=== PATIENT | male | born 1955 | race Two or more races ===

== ENCOUNTER 2023-04-03 07:16 | Inpatient (IN) | payer OTHER ==
[2023-03-28 10:33] LABS: PH,URINE 5.5 (5.0-8.0); URINE APPEARANCE Clear; URINE BILIRRUBIN Negative (NEGATIVE); URINE BLOOD Small; URINE COLOR Dark Yellow; URINE GLUCOSE Negative (NEGATIVE); URINE LEUKOCYTE Negative; URINE NITRATE Negative; URINE PROTEIN Negative (NEGATIVE)
[2023-03-28 10:37] LABS: URINE BACTERIA 8.8 uL (0.0-1933); URINE RBC 24.7 uL (0.0-20.8); URINE WBC 7.7 uL (0.0-23.2)
[2023-03-28 10:38] LABS: HEMATOCRIT 45.4 % (39.0-48.0); HEMOGLOBIN 15.7 g/dL (13-16.00); MEAN CELL VOLUME 95.1 fL (80.0-100.00); MEAN CORPUSCULAR HEMOGLOBIN 32.8 pg (27.00-32.0); MEAN CORPUSCULAR HGB CONC 34.5 g/dl (32.0-36.0); PLATELET COUNT 180 K/uL (150-450); RED BLOOD COUNT 4.78 M/uL (4.00-6.00); RED CELL DISTRIBUTION WIDTH 13.8 % (11.5-14.5)
[2023-03-28 11:04] LABS: INR 1.04; PARTIAL THROMBOPLASTIN TIME 28.6 SECONDS (22.0-34.0); PROTHROMBIN TIME 10.9 SECONDS (9.0-11.5)
[2023-03-28 11:10] LABS: ALBUMIN 3.9 gm/dL (3.4-5.0); BILIRUBIN TOTAL 0.7 mg/dL (0.3-1.2); CALCIUM 9.5 mg/dL (8.5-10.1); CREATININE SERUM 1.06 mg/dL (0.70-1.30); GFR 70.11; GLOBULINA 3.9 G/DL (2.4-3.5); POTASSIUM 4.64 mEq/L (3.5-5.1); TOTAL PROTEIN 7.8 gm/dL (6.4-8.2)
== END 2023-04-04 17:58 | disposition home or self-care (01) | DRG 627 ==
LOC: CIR.AMB 07:16 → SURG 14:48 → CIR.AMB 04-14 08:00 → SURH 04-14 08:00 → EDSTATUS 04-14 08:00
PROVIDERS: ADMIT Otolaryngology; ATTEND Otolaryngology
PROC: 0GTG0ZZ Resection of Left Thyroid Gland Lobe, Open Approach (ICD-10-PCS; principal; 2023-04-03 07:00)
DX: E04.1 Nontoxic single thyroid nodule (principal); Z20.822 Contact with and (suspected) exposure to COVID-19

== ENCOUNTER 2023-04-11 12:22 | Inpatient (IN) | payer OTHER ==
[~2023-04-11] VITALS: Ht 152.4 cm; Wt 68.0 kg
[2023-04-11 14:45] LABS: HEMOGLOBIN 14.2 g/dL (13-16.00); MEAN CELL VOLUME 95.7 fL (80.0-100.00); MEAN CORPUSCULAR HEMOGLOBIN 32.5 pg (27.00-32.0); MEAN CORPUSCULAR HGB CONC 33.9 g/dl (32.0-36.0); RED BLOOD COUNT 4.39 M/uL (4.00-6.00); RED CELL DISTRIBUTION WIDTH 13.7 % (11.5-14.5)
[2023-04-11 15:01] LABS: INR 1.14; PARTIAL THROMBOPLASTIN TIME 31.9 SECONDS (22.0-34.0)
[2023-04-11 15:06] LABS: ALBUMIN 2.8 gm/dL (3.4-5.0); BILIRUBIN TOTAL 0.67 mg/dL (0.3-1.2); CALCIUM 9.3 mg/dL (8.5-10.1); GFR 7.12; GLOBULINA 5.1 G/DL (2.4-3.5); POTASSIUM 5.08 mEq/L (3.5-5.1); TOTAL PROTEIN 7.9 gm/dL (6.4-8.2)
[2023-04-11 15:20] LABS: PLATELET COUNT 146 K/uL (150-450)
[2023-04-11 15:21] LABS: PROTHROMBIN TIME 11.9 SECONDS (9.0-11.5)
[2023-04-11 15:23] LABS: CREATININE SERUM 7.69 mg/dL (0.70-1.30)
[2023-04-11 16:28] LABS: URINE APPEARANCE Clear; URINE BILIRRUBIN Negative (NEGATIVE); URINE BLOOD Small; URINE COLOR Yellow; URINE GLUCOSE Negative (NEGATIVE); URINE LEUKOCYTE Trace; URINE NITRATE Negative; URINE PROTEIN Trace (NEGATIVE); URINE UROBILINOGEN 0.2 E.U./dl
[2023-04-11 16:29] LABS: URINE RBC 13.3 uL (0.0-20.8); URINE WBC 19.3 uL (0.0-23.2)
[2023-04-11 16:50] LABS: URINE BACTERIA 3.7 uL (0.0-1933); URINE EPITHELIAL CELLS 0.7 uL (0.0-38.8)
[2023-04-11 21:39] LABS: INR 1.13; PROTHROMBIN TIME 11.8 SECONDS (9.0-11.5)
[2023-04-11 21:41] LABS: ALBUMIN 2.6 gm/dL (3.4-5.0); CALCIUM 8.9 mg/dL (8.5-10.1); CREATININE SERUM 2.67 mg/dL (0.70-1.30); GFR 24.14; MAGNESIUM 2.6 mg/dL (1.8-2.4); PHOSPHOROUS 2.9 mg/dL (2.5-4.9); POTASSIUM 3.9 mEq/L (3.5-5.1)
[2023-04-11 23:17] LABS: ABG PH 7.428 (7.35-7.45); ABG PO2 77.4 mmHg (80-100); ABG pCO2 34.7 mmHg (35-45); BASE EXCESS 1.3 mmol/l; BICARBONATE 22.4 mmol/l (23-25); Tco2 23.5 mmol/l
[2023-04-11 23:18] LABS: allen test SATISFACTORY; o2 21 %; puncture site RADIAL RIGHT
[2023-04-11 23:19] LABS: SaO2 95.6 %
[2023-04-12 07:56] LABS: ALBUMIN 2.5 gm/dL (3.4-5.0); BILIRUBIN TOTAL 0.84 mg/dL (0.3-1.2); CALCIUM 8.5 mg/dL (8.5-10.1); CREATININE SERUM 2.03 mg/dL (0.70-1.30); GFR 33.13; GLOBULINA 4.3 G/DL (2.4-3.5); POTASSIUM 4.88 mEq/L (3.5-5.1); TOTAL PROTEIN 6.8 gm/dL (6.4-8.2); TSH 1.14 uIU/mL (0.358-3.74)
[2023-04-12 08:08] LABS: PROSTATIC SPECIFIC ANTIGEN 5.56 NG/ML (0.010-4.00)
[2023-04-13 06:58] LABS: HEMATOCRIT 38.7 % (39.0-48.0); HEMOGLOBIN 13.1 g/dL (13-16.00); MEAN CELL VOLUME 94.7 fL (80.0-100.00); MEAN CORPUSCULAR HEMOGLOBIN 32.1 pg (27.00-32.0); MEAN CORPUSCULAR HGB CONC 33.9 g/dl (32.0-36.0); PLATELET COUNT 177 K/uL (150-450); RED BLOOD COUNT 4.08 M/uL (4.00-6.00); RED CELL DISTRIBUTION WIDTH 14.3 % (11.5-14.5)
[2023-04-13 08:00] LABS: ALBUMIN 2.3 gm/dL (3.4-5.0); BILIRUBIN TOTAL 0.55 mg/dL (0.3-1.2); CALCIUM 8.4 mg/dL (8.5-10.1); CREATININE SERUM 0.7 mg/dL (0.70-1.30); GFR 113.18; PHOSPHOROUS 2.1 mg/dL (2.5-4.9); POTASSIUM 4.49 mEq/L (3.5-5.1); TOTAL PROTEIN 6.3 gm/dL (6.4-8.2)
[2023-04-13 08:01] LABS: C-REACTIVE PROTEIN 16.4 MG/DL (0.00-0.29)
[2023-04-14 06:10] LABS: HEMATOCRIT 37.3 % (39.0-48.0); HEMOGLOBIN 12.8 g/dL (13-16.00); MEAN CORPUSCULAR HEMOGLOBIN 32.8 pg (27.00-32.0); MEAN CORPUSCULAR HGB CONC 34.2 g/dl (32.0-36.0); PLATELET COUNT 184 K/uL (150-450); RED BLOOD COUNT 3.89 M/uL (4.00-6.00); RED CELL DISTRIBUTION WIDTH 14.1 % (11.5-14.5)
[2023-04-14 07:03] LABS: PH,URINE 6.5 (5.0-8.0); URINE APPEARANCE Cloudy; URINE BILIRRUBIN Negative (NEGATIVE); URINE BLOOD Large; URINE COLOR Orange; URINE GLUCOSE Negative (NEGATIVE); URINE LEUKOCYTE Small; URINE NITRATE Negative
[2023-04-14 07:07] LABS: URINE BACTERIA 151.1 uL (0.0-1933); URINE EPITHELIAL CELLS 14.8 uL (0.0-38.8); URINE WBC 197.4 uL (0.0-23.2)
[2023-04-14 07:32] LABS: URINE CRYSTALS MANY /HPF; URINE PROTEIN 100 (NEGATIVE)
== END 2023-04-14 20:08 | disposition home or self-care (01) | DRG 683 ==
LOC: ER 12:22 → MEDI 19:48
PROVIDERS: General Practice; Internal Medicine Infectious Disease; ADMIT Internal Medicine; ATTEND Internal Medicine
PROC: BW21ZZZ Computerized Tomography (CT Scan) of Abdomen and Pelvis (ICD-10-PCS; principal; 2023-04-11)
DX: N17.9 Acute kidney failure, unspecified (principal); I82.432 Acute embolism and thrombosis of left popliteal vein; N39.0 Urinary tract infection, site not specified; I82.442 Acute embolism and thrombosis of left tibial vein; N12 Tubulo-interstitial nephritis, not specified as acute or chronic; N32.0 Bladder-neck obstruction; I10 Essential (primary) hypertension; N40.0 Benign prostatic hyperplasia without lower urinary tract symptoms

== ENCOUNTER 2023-04-22 19:40 | Emergency (ER) | payer OTHER ==
[~2023-04-22] VITALS: Ht 167.6 cm; Wt 63.5 kg
[2023-04-22 20:44] LABS: HEMATOCRIT 39.6 % (39.0-48.0); HEMOGLOBIN 13.3 g/dL (13-16.00); MEAN CELL VOLUME 95.9 fL (80.0-100.00); MEAN CORPUSCULAR HEMOGLOBIN 32.2 pg (27.00-32.0); MEAN CORPUSCULAR HGB CONC 33.6 g/dl (32.0-36.0); PLATELET COUNT 290 K/uL (150-450); RED BLOOD COUNT 4.13 M/uL (4.00-6.00); RED CELL DISTRIBUTION WIDTH 13.8 % (11.5-14.5)
[2023-04-22 21:17] LABS: URINE BLOOD LARGE; URINE LEUKOCYTE LARGE; URINE NITRATE POSITIVE
[2023-04-22 21:21] LABS: INR 1.04; PARTIAL THROMBOPLASTIN TIME 28.4 SECONDS (22.0-34.0); PROTHROMBIN TIME 10.9 SECONDS (9.0-11.5)
[2023-04-22 21:25] LABS: ALBUMIN 3.1 gm/dL (3.4-5.0); BILIRUBIN TOTAL 0.32 mg/dL (0.3-1.2); CREATININE SERUM 1.05 mg/dL (0.70-1.30); GFR 70.89; GLOBULINA 4.2 G/DL (2.4-3.5); POTASSIUM 4.15 mEq/L (3.5-5.1); TOTAL PROTEIN 7.3 gm/dL (6.4-8.2)
[2023-04-22 21:36] LABS: URINE APPEARANCE BLOODY; URINE BILIRRUBIN LARGE (NEGATIVE); URINE COLOR RED; URINE GLUCOSE 100 MG/DL (NEGATIVE); URINE PROTEIN >=300 (NEGATIVE); URINE RBC LOADED /HPF; URINE UROBILINOGEN >= 8.0 E.U./dl
[2023-04-22 21:39] LABS: URINE WBC LOADED /hpf
[2023-04-22 21:40] LABS: URINE BACTERIA MODERATE; URINE CRYSTALS NEGATIVE /HPF; URINE EPITHELIAL CELLS NONE SEEN /HPF; URINE MUCUS NEGATIVE
== END 2023-04-23 07:26 | disposition home or self-care (01) ==
LOC: ER 19:40
PROVIDERS: General Practice
DX: R31.0 Gross hematuria (principal); Z91.011 Allergy to milk products; N39.0 Urinary tract infection, site not specified; N32.0 Bladder-neck obstruction

== ENCOUNTER 2023-05-06 11:21 | Emergency (ER) | payer OTHER ==
[~2023-05-06] VITALS: Ht 175.3 cm; Wt 66.7 kg
== END 2023-05-06 14:11 | disposition home or self-care (01) ==
LOC: ER 11:21
DX: Z46.6 Encounter for fitting and adjustment of urinary device (principal); I10 Essential (primary) hypertension; Z91.011 Allergy to milk products

== ENCOUNTER → 2023-08-05 08:51 | Outpatient (CLI) | payer OTHER ==
[2023-08-05 11:35] LABS: HEMATOCRIT 46.8 % (39.0-48.0); HEMOGLOBIN 15.9 g/dL (13-16.00); MEAN CELL VOLUME 93.7 fL (80.0-100.00); MEAN CORPUSCULAR HEMOGLOBIN 31.9 pg (27.00-32.0); PLATELET COUNT 166 K/uL (150-450); RED CELL DISTRIBUTION WIDTH 14.3 % (11.5-14.5)
[2023-08-05 12:00] LABS: PARTIAL THROMBOPLASTIN TIME 31.7 SECONDS (22.0-34.0); PROTHROMBIN TIME 10.5 SECONDS (9.0-11.5)
[2023-08-05 12:22] LABS: CALCIUM 9.4 mg/dL (8.5-10.1); CREATININE SERUM 0.91 mg/dL (0.70-1.30); GFR 83.36; POTASSIUM 4.3 mEq/L (3.5-5.1)
[2023-08-05 12:51] LABS: URINE APPEARANCE Cloudy; URINE BILIRRUBIN Negative (NEGATIVE); URINE BLOOD Moderate; URINE COLOR Yellow; URINE GLUCOSE Negative (NEGATIVE); URINE LEUKOCYTE Moderate; URINE NITRATE Positive; URINE PROTEIN 30 (NEGATIVE); URINE UROBILINOGEN 0.2 E.U./dl
[2023-08-05 12:59] LABS: URINE EPITHELIAL CELLS 60.1 uL (0.0-38.8); URINE RBC 188.1 uL (0.0-20.8); URINE WBC 385.7 uL (0.0-23.2)
[2023-08-05 13:09] LABS: URINE BACTERIA > 9821.5 uL (0.0-1933)
== END | disposition home or self-care (01) ==
LOC: LAB 08:51
PROVIDERS: ATTEND Urology
DX: N40.1 Benign prostatic hyperplasia with lower urinary tract symptoms (principal)

== ENCOUNTER 2024-12-12 14:11 | Outpatient (CLI) | payer OTHER | END 2024-12-12 14:24 | disposition home or self-care (01) | LOC: SONOGRAMA 14:11 | PROVIDERS: ATTEND Family Medicine | DX: N20.0 Calculus of kidney (principal); N39.0 Urinary tract infection, site not specified; N40.1 Benign prostatic hyperplasia with lower urinary tract symptoms ==